=== PATIENT | male | born 1930 | race Caucasian/White ===

== ENCOUNTER 2020-07-30 08:40 | Day surgery (SDC) | payer OTHER ==
[~2020-07-30] VITALS: Ht 182.9 cm; Wt 100.6 kg
[~2020-07-30 08:40] MED LIST: ALLO100 PO; AMLO10 PO; ASPI81CH PO; CETI5 PO; CHOL10002; DOC250 PO; MAGCHL64ER PO; MAXIDE PO; METF500 PO; MONT10T PO; Mucinex100 MG PO; Multiple Vitam1 EAC1 PO; POTCHL20ER PO
--- NOTE | 2020-07-30 10:05 | NUR ---
07/30/20 Rubia Shaver PLEDGET PLACED AT 0939, PT TOLERATED PLACEMENT WELL.
== END 2020-07-30 11:03 | disposition home or self-care (01) ==
LOC: ORSCSDS 08:40
PROVIDERS: Counselor Professional
PROC: 08RJ3JZ Replacement of Right Lens with Synthetic Substitute, Percutaneous Approach (ICD-10-PCS; principal; 2020-07-30 10:00)
DX: H25.11 Age-related nuclear cataract, right eye (principal); E11.36 Type 2 diabetes mellitus with diabetic cataract; I10 Essential (primary) hypertension; E78.00 Pure hypercholesterolemia, unspecified; Z79.82 Long term (current) use of aspirin; Z79.84 Long term (current) use of oral hypoglycemic drugs; Z79.899 Other long term (current) drug therapy
CPT/HCPCS: 82947; A9270; J2001; J2250; J3010; V2632

== ENCOUNTER 2020-09-24 08:26 | Day surgery (SDC) | payer OTHER ==
[~2020-09-24] VITALS: Ht 182.9 cm; Wt 103.0 kg
--- NOTE | 2020-09-24 09:12 | NUR ---
09/24/20 0912 Car Hedrick CALL LIGHT WITHIN REACH. PLEDGETT AND TETRACAINE PLACED AT 0850
== END 2020-09-24 10:52 | disposition home or self-care (01) ==
LOC: ORSCSDS 08:26
PROVIDERS: Counselor Professional
PROC: 08RK3JZ Replacement of Left Lens with Synthetic Substitute, Percutaneous Approach (ICD-10-PCS; principal; 2020-09-24 10:00)
DX: H25.12 Age-related nuclear cataract, left eye (principal); I10 Essential (primary) hypertension; E11.9 Type 2 diabetes mellitus without complications; Z79.84 Long term (current) use of oral hypoglycemic drugs; Z79.899 Other long term (current) drug therapy
CPT/HCPCS: 82947; J2001; J2250; J3010; J7040; V2632

== ENCOUNTER → 2020-11-07 | Outpatient (CLI) | payer OTHER ==
[2020-11-07 11:01] LABS: Albumin, Blood 3.9 g/dL (3.4-5.0); Anion Gap 6 mmol/L (6-16); Blood Urea Nitrogen 21 mg/dL (8-24); Bun/Creatinine Ratio 26.8 (12.0-20.0); CO2, Blood 31 mmol/L (21-32); Calcium, Blood 9.1 mg/dL (8.5-10.1); Chloride, Blood 101 mmol/L (98-108); Creatinine, Blood 0.79 mg/dL (0.60-1.20); Glomerular Filtration Rate >60 (60-); Glucose, Blood 181 mg/dL (70-99); Phosphorus, Blood 3.2 mg/dL (2.5-4.9); Potassium, Blood 3.3 mmol/L (3.5-5.5); Sodium, Blood 138 mmol/L (136-145)
== END | disposition home or self-care (01) ==
LOC: LAB 09:19 → LAB SHORT 09:19
PROVIDERS: Family Medicine
DX: E11.9 Type 2 diabetes mellitus without complications (principal)
CPT/HCPCS: 36415; 80069; 83036